=== PATIENT | male | born 1970 | race Two or more races ===

== ENCOUNTER 2017-09-19 21:58 | Emergency (ER) | payer MEDICAID ==
[~2017-09-19] VITALS: Ht 180.3 cm; Wt 109.1 kg
[2017-09-19 22:09] VITALS: BP 128/98
[2017-09-19] MEDS ORDERED: NEOM10SO7 OT (22:49)
[2017-09-19] MEDS ORDERED: HYDROcodone/acetaminophen 10/325mg tab PO ONE (22:50)
[2017-09-19] MEDS ORDERED: ibuprofen tablet 400 MG TABLET PO ONE (22:55)
== END 2017-09-19 23:01 | disposition home or self-care (01) ==
LOC: ER 22:01
DX: H60.92 Unspecified otitis externa, left ear (principal)
CPT/HCPCS: 99283